=== PATIENT | male | born 1990 | race Caucasian/White ===

== ENCOUNTER 2019-04-25 22:48 | Emergency (ER) | payer OTHER ==
[2019-04-25 22:55] VITALS: BP 125/67; PULSE 90; TEMP 97.9; BMI 29.2
[2019-04-25] MEDS ORDERED: CEPHALEXIN MONOHYDRATE 500 MG CAPSULE (UD) PO ONE (23:59)
[2019-04-26] MEDS ORDERED: CEPHALEXIN MONOHYDRATE 500 MG CAPSULE (UD) ONE (00:12)
[2019-04-26] MEDS ORDERED: CLINDAMYCIN HCL 150 MG CAPSULE (FP) ONE (01:23)
[2019-04-26] MEDS ORDERED: CLINDAMYCIN HCL 150 MG CAPSULE (FP) PO ONE (01:25)
--- NOTE | 2019-04-26 01:32 | PDOC ---
History of Present Illness - General Chief Complaint: Wound Stated Complaint: R/THUMB/SWELLING Time Seen by Provider: 04/25/19 23:15 History Source: Patient Exam Limitations: No Limitations Past History - Past Medical History Allergies/Adverse Reactions: Allergies Allergy/AdvReac Type Severity Reaction Status Date / Time No Known Allergies Allergy Verified 04/26/19 00:18 Home Medications: Ambulatory Orders Clindamycin [Cleocin -] 450 mg PO Q8H #87 capsule 04/26/19 - Psycho Social/Smoking Cessation Hx Smoking History: Current every day smoker Information on smoking cessation initiated: No Hx Alcohol Use: No Drug/Substance Use Hx: No *Physical Exam - Vital Signs Last Vital Signs Temp Pulse Resp BP Pulse Ox 97.9 F 90 18 125/67 100 04/25/19 22:50 04/25/19 22:50 04/25/19 22:50 04/25/19 22:50 04/25/19 22:50 - Physical Exam General Appearance: No: Apparent Distress Integumentary: positive: Other (+swelling R thumb, +paronychia of R thumb with redness; no evidence of felon) Neurologic: positive: Alert Procedures - Incision and Drainage I&D Site: Right: Paronychia (Thumb) Betadine cleansed: Yes Blade Size: 11 Attempts: 1 Medical Decision Making - Medical Decision Making 29 y/o M with no sig pmh presents with R thumb swelling x 1 week. Denies fever. Patient tried poking it with a needle to see if anything would come out but nothing did. R thumb paronychia Drainage done with purulent drainage expressed Given amount of swelling with erythema, will also give abx Patient endorses he bites his fingers - given Clindamycin 04/26/19 01:28 Discharge - Discharge Information Problems reviewed: Yes Clinical Impression/Diagnosis: Paronychia Condition: Stable Disposition: HOME - Admission No - Additional Discharge Information Prescriptions: Clindamycin [Cleocin -] 450 mg PO Q8H #87 capsule Prescription Drug Monitoring Program (I-STOP) results: I-STOP not reviewed - Follow up/Referral - Patient Discharge Instructions Patient Printed Discharge Instructions: DI for Paronychia Additional Instructions: Thank you for choosing [facility]. It was a pleasure taking care of you. You may take Motrin 600 mg every 6 hours by mouth as needed for mild to moderate pain. Take Motrin with food. Take antibiotics as prescribed. Please take with food. This medication can cause diarrhea Perform warm soaks 3-4 times a day. Return to ED in 2 days for wound check Return to the Emergency Department if your symptoms worsen or persist, you have fever or other concerning symptoms. - Post Discharge Activity
== END 2019-04-26 01:34 | disposition home or self-care (01) ==
LOC: JER 22:48 → JERFT 22:48 → JER 04-26 01:34
PROC: 0J9J0ZZ Drainage of Right Hand Subcutaneous Tissue and Fascia, Open Approach (ICD-10-PCS; principal; 2019-04-25)
DX: L03.011 Cellulitis of right finger (principal)
CPT/HCPCS: 99282-25